=== PATIENT | female | born 2000 | race African-American/Black ===

== ENCOUNTER 2024-07-16 15:28 | Emergency (ER) | payer OTHER ==
[~2024-07-16] VITALS: Ht 175.3 cm; Wt 100.0 kg
[2024-07-16 15:39] VITALS: TEMP 98.6
[2024-07-16 17:37] LABS: APPEARANCE,URINE CLEAR (CLEAR); BILIRUBIN,URINE NEGATIVE (NEGATIVE); COLOR,URINE YELLOW (YELLOW); GLUCOSE, URINE (UA) NEGATIVE (NEGATIVE); KETONES,URINE NEGATIVE (NEGATIVE); LEUKOCYTE ESTERASE ,URINE NEGATIVE (NEGATIVE); NITRATE,URINE NEGATIVE (NEGATIVE); OCCULT BLOOD,URINE SMALL (NEGATIVE); PH,URINE 5.5 (5.0-8.0); PROTEIN,URINE NEGATIVE (NEGATIVE); SPECIFIC GRAVITIY, URINE 1.021 (1.003-1.030); UROBILINOGEN,URINE <=1.0 mg/dL (<=1.0)
[2024-07-16 17:38] LABS: HCG,QUAL URINE NEGATIVE (NEGATIVE)
[2024-07-16 17:40] VITALS: BP 127/78; PULSE 76; RESP 18; O2SAT 100
[2024-07-16 17:51] LABS: BACTERIA,URINE Rare /HPF (None Seen); RBC,URINE 0-2 /HPF (0-2)
[2024-07-16] MEDS: CefTRIAXone SODIUM 1 GM/VIAL IM ONE (17:55)
[2024-07-16] MEDS: DOXYCYCLINE HYCLATE 100 MG TABLET PO ONE (17:55)
[2024-07-16] MEDS: LIDOCAINE/PF 1% 2 ML VIAL IM ONE (17:55)
[2024-07-16] MEDS ORDERED: DOXY-354 PO (18:10)
== END 2024-07-16 18:41 | disposition home or self-care (01) ==
LOC: EMS 15:32
DX: N89.8 Other specified noninflammatory disorders of vagina (principal); N34.2 Other urethritis; Z11.3 Encounter for screening for infections with a predominantly sexual mode of transmission
CPT/HCPCS: 99283; 81001; 84703; 87210; 87491; 87591; 96372; J0696; J3490